=== PATIENT | male | born 1990 | race African-American/Black ===

== ENCOUNTER 2018-06-06 08:01 | Emergency (ER) | payer BC, OTHER ==
--- NOTE | 2018-06-06 09:15 | RAD ---
RIGHT HAND THREE VIEWS: HISTORY: Injury. Pain. COMPARISON: None. FINDINGS: No acute displaced fracture or malalignment. Soft tissues are unremarkable. Mild lateral capsular c alcification along the middle finger metacarpophalangeal joint. 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 IMPRESSION: No acute displaced fracture or malalignment. POS: [facility]
== END 2018-06-06 09:45 | disposition home or self-care (01) ==
LOC: ERS 08:01
DX: M25.531 Pain in right wrist (principal); E11.9 Type 2 diabetes mellitus without complications; E78.5 Hyperlipidemia, unspecified; Z87.891 Personal history of nicotine dependence; W23.0XXA Caught, crushed, jammed, or pinched between moving objects, initial encounter
CPT/HCPCS: 29125

== ENCOUNTER 2019-09-10 22:35 | Emergency (ER) | payer OTHER ==
[2019-09-10 23:01] LABS: Base Excess-Venous -0.8 mmol/L (-2.0 to 3.0); Bicarbonate (HCO3v) 25.5 mmol/L (22.0-28.0); CO2 Tension (PvCO2) 47.2 mmHg (40.0-50.0); Calcium, Ionized 1.13 mmol/L (See Comments:); Chloride 98 mmol/L (98-107); Hemoglobin - Calc 15.6 g/dL (14.0-18.0); Potassium 3.7 mmol/L (3.5-5.1); Sodium 136 mmol/L (138-145); vO2 Saturation-calc 58.3 % (60.0-85.0)
[2019-09-10 23:13] LABS: #Basophils 0.1 thou/uL (0.0-0.2); #Eosinphils 0.1 thou/uL (0.0-0.7); #Lymphocytes 1.6 thou/uL (1.20-3.40); #Monocytes 0.4 thou/uL (0.11-0.59); #Neutrophils 2.3 thou/uL (1.40-6.50); %Basophils 1.3 % (0.0-1.0); %Eosinophils 2.9 % (0.0-10.0); %Lymphocytes 35.7 % (21.0-51.0); %Neutrophils 51.2 % (42.0-75.0); Hemoglobin 15.4 g/dL (14.0-18.0); Mean Corpuscular HGB CONC 33.1 g/dL (32.0-36.0); Mean Corpuscular Hemoglobin 28.7 pg (27.0-31.0); Mean Corpuscular Volume 86.7 fL (78.0-98.0); Mean Platelet Volume 9.5 fL (7.4-10.4); Platelet Count 225 thou/uL (130-400); RBC Distribution Width 11.9 % (11.5-14.5); Red Blood Cell (RBC) Count 5.36 mill/uL (4.70-6.10); White Blood Cell (WBC) Count 4.5 thou/uL (4.8-10.8)
[2019-09-10 23:25] LABS: Bilirubin Negative (Negative); Blood, Urine Negative (Negative); Clarity Clear (Clear); Glucose, Urine (Dipstick) Greater than 1000 mg/dL (Negative); Leukocyte Negative Leu/uL (Negative); Nitrite Negative (Negative); Protein, Urine (Dipstick) Negative (Neg-Trace); Urobilinogen Normal mg/dL (Less than 2)
[2019-09-10 23:35] LABS: ALT (SGPT) 60 U/L (8-55); AST (SGOT) 24 U/L (5-34); Albumin 4.6 g/dL (3.5-5.0); Alcohol Less than 10 mg/dL (Less than 10); Alkaline Phosphatase 112 U/L (40-110); Anion Gap 15 mmol/L (10-20); BUN (Urea Nitrogen) 8 mg/dL (8.9-20.6); Bilirubin, Total 0.7 mg/dL (0.2-1.2); Calc. Creatinine Clearance 0 mL/min (70-130); Calcium 9.4 mg/dL (7.8-10.44); Carbon Dioxide 26 mmol/L (22-29); Chloride 98 mmol/L (98-107); Estimated GFR-MDRD 81; Globulin 2.9 g/dL (2.4-3.5); Potassium 3.9 mmol/L (3.5-5.1); Protein, Total 7.5 g/dL (6.0-8.3); Sodium 135 mmol/L (136-145)
[2019-09-10 23:40] LABS: Glucose 604 mg/dL (70-105)
== END 2019-09-11 01:48 | disposition home or self-care (01) ==
LOC: ERS 22:35
DX: E11.65 Type 2 diabetes mellitus with hyperglycemia (principal); E78.5 Hyperlipidemia, unspecified; E78.00 Pure hypercholesterolemia, unspecified; Z87.891 Personal history of nicotine dependence; Z79.84 Long term (current) use of oral hypoglycemic drugs
CPT/HCPCS: 36416; 80053; 80307; 81003; 82010; 82330; 82435; 82803; 83930; 84132; 84295; 85014; 85025; 96360; 96361

== ENCOUNTER 2020-06-02 01:46 | Emergency (ER) | payer OTHER | END 2020-06-02 03:05 | disposition home or self-care (01) | LOC: ERS 01:46 | DX: L03.317 Cellulitis of buttock (principal); E11.9 Type 2 diabetes mellitus without complications; E78.5 Hyperlipidemia, unspecified; E78.00 Pure hypercholesterolemia, unspecified; Z87.891 Personal history of nicotine dependence; Z79.84 Long term (current) use of oral hypoglycemic drugs; Z79.899 Other long term (current) drug therapy | CPT/HCPCS: 99283 ==

== ENCOUNTER 2021-04-18 15:10 | Emergency (ER) | payer BC, OTHER ==
[2021-04-18] MEDS ORDERED: Lidocaine 4% Cream 5 GM TUBE w/ Tegaderm ONE (15:50)
[2021-04-18] MEDS ORDERED: Lidocaine Viscous Sol 2% 15 ml UD Cup ONE (15:58)
== END 2021-04-18 17:15 | disposition home or self-care (01) ==
LOC: ERS 15:10
DX: K04.7 Periapical abscess without sinus (principal); E11.9 Type 2 diabetes mellitus without complications; E78.5 Hyperlipidemia, unspecified; Z87.891 Personal history of nicotine dependence; Z79.84 Long term (current) use of oral hypoglycemic drugs
CPT/HCPCS: 41800

== ENCOUNTER 2021-08-02 08:27 | Emergency (ER) | payer BC, OTHER ==
[2021-08-02 08:59] LABS: #Basophils 0.1 thou/uL (0.0-0.2); #Eosinphils 0.2 thou/uL (0.0-0.7); #Lymphocytes 1.9 thou/uL (1.20-3.40); #Monocytes 0.4 thou/uL (0.11-0.59); #Neutrophils 2.4 thou/uL (1.40-6.50); %Basophils 1.6 % (0.0-1.0); %Eosinophils 3.3 % (0.0-10.0); %Monocytes 7.5 % (0.0-10.0); %Neutrophils 48.7 % (42.0-75.0); Hemoglobin 15.8 g/dL (14.0-18.0); Mean Corpuscular HGB CONC 33.8 g/dL (32.0-36.0); Mean Corpuscular Hemoglobin 29.6 pg (27.0-31.0); Mean Corpuscular Volume 87.7 fL (78.0-98.0); Mean Platelet Volume 8.3 fL (7.4-10.4); Platelet Count 269 thou/uL (130-400); RBC Distribution Width 11.5 % (11.5-14.5); Red Blood Cell (RBC) Count 5.34 mill/uL (4.70-6.10); White Blood Cell (WBC) Count 4.9 thou/uL (4.8-10.8)
[2021-08-02] MEDS ORDERED: Insulin Regular 300 UNITS/3 ML VIAL ONE (09:17)
[2021-08-02 09:30] LABS: Albumin 4.6 g/dL (3.5-5.0)
[2021-08-02 09:31] LABS: Chloride 101 mmol/L (98-107); Potassium 4.3 mmol/L (3.5-5.1)
[2021-08-02 09:32] LABS: Calcium 9.3 mg/dL (7.8-10.44); Sodium 136 mmol/L (136-145)
[2021-08-02 09:33] LABS: Globulin 3.3 g/dL (2.4-3.5); Glucose 346 mg/dL (70-105); Protein, Total 7.9 g/dL (6.0-8.3)
[2021-08-02 09:34] LABS: Anion Gap 14 mmol/L (10-20); Carbon Dioxide 25 mmol/L (22-29)
[2021-08-02 09:36] LABS: Alkaline Phosphatase 88 U/L (40-110); Calc. Creatinine Clearance 0 mL/min (70-130)
[2021-08-02 09:37] LABS: BUN (Urea Nitrogen) 11 mg/dL (8.9-20.6)
[2021-08-02 09:38] LABS: AST (SGOT) 24 U/L (5-34)
[2021-08-02 09:39] LABS: ALT (SGPT) 67 U/L (8-55)
[2021-08-02 09:44] LABS: Bilirubin Negative (Negative); Blood, Urine 1+ (Negative); Clarity Clear (Clear); Glucose, Urine (Dipstick) Greater than 1000 mg/dL (Negative); Ketone, Urine Negative (Negative); Leukocyte Negative Leu/uL (Negative); Nitrite Negative (Negative); Protein, Urine (Dipstick) Negative (Neg-Trace); Squamous Epithelial 0-3 HPF (0-3); Urobilinogen Normal mg/dL (Less than 2); WBC/HPF 0-3 HPF (0-3); pH, Urine 5.5 (5.0-9.0)
[2021-08-02 09:46] LABS: Bacteria/HPF 1+ HPF (None Seen)
[2021-08-02 10:20] LABS: Actual Bicarbonate (HCO3v) 26 mEq/L (22-28); Analyzer IN Cardio ER; Base Excess -0.4 mEq/L (-2.0 to +3.0); Calcium, Ionized (venous) 1.12 mmol/L (1.16-1.32); Chloride (VBG) 102 mmol/L (98-106); Hemoglobin (Hb) 15.3 g/dL (13.2-17.3); Potassium (VBG) 4.14 mmol/L (3.70-5.30); Sodium 136.8 mmol/L (133-146); pH (venous) 7.33 (7.32-7.43)
[2021-08-02 10:26] LABS: Lipase 29 U/L (8-78); Magnesium 2.1 mg/dL (1.6-2.6)
[2021-08-02 13:46] LABS: Bilirubin, Total 0.4 mg/dL (0.2-1.2)
== END 2021-08-02 10:52 | disposition home or self-care (01) ==
LOC: ERS 08:27
DX: E11.65 Type 2 diabetes mellitus with hyperglycemia (principal); E78.5 Hyperlipidemia, unspecified; Z87.891 Personal history of nicotine dependence; Z79.899 Other long term (current) drug therapy; Z79.84 Long term (current) use of oral hypoglycemic drugs
CPT/HCPCS: 36415; 36416; 80053; 81003; 81015; 82805; 83690; 83735; 83930; 85025; 87086; 93005; J1815

== ENCOUNTER 2021-09-23 20:31 | Emergency (ER) | payer BC, OTHER ==
[2021-09-23] MEDS ORDERED: Proparacaine 0.5% Opth 15 ML BOT ONE (22:46)
[2021-09-23] MEDS ORDERED: Fluorescein Opthalmic Strip ONE (22:46)
== END 2021-09-24 00:04 | disposition home or self-care (01) ==
LOC: ERS 20:31
DX: H10.9 Unspecified conjunctivitis (principal); Z87.891 Personal history of nicotine dependence
CPT/HCPCS: 99282

== ENCOUNTER 2021-10-26 22:33 | Emergency (ER) | payer BC, OTHER ==
[2021-10-27 00:30] LABS: Anion Gap 16 mmol/L (10-20); BUN (Urea Nitrogen) 6 mg/dL (8.9-20.6); Calc. Creatinine Clearance 0 mL/min (70-130); Calcium 9.3 mg/dL (7.8-10.44); Carbon Dioxide 23 mmol/L (22-29); Chloride 103 mmol/L (98-107); Glucose 333 mg/dL (70-105); Potassium 3.8 mmol/L (3.5-5.1); Sodium 138 mmol/L (136-145)
== END 2021-10-27 01:45 | disposition home or self-care (01) ==
LOC: ERS 22:33
DX: E11.65 Type 2 diabetes mellitus with hyperglycemia (principal); E78.5 Hyperlipidemia, unspecified; Z87.891 Personal history of nicotine dependence
CPT/HCPCS: 36416; 80048; 99284

== ENCOUNTER 2021-11-13 03:37 | Emergency (ER) | payer BC, OTHER ==
[2021-11-13 04:17] LABS: #Eosinphils 0.2 thou/uL (0.0-0.7); #Lymphocytes 2.1 thou/uL (1.20-3.40); #Monocytes 0.4 thou/uL (0.11-0.59); #Neutrophils 2.3 thou/uL (1.40-6.50); %Basophils 0.9 % (0.0-1.0); %Eosinophils 3.4 % (0.0-10.0); %Lymphocytes 41.8 % (21.0-51.0); %Monocytes 7.8 % (0.0-10.0); %Neutrophils 46.1 % (42.0-75.0); Mean Corpuscular HGB CONC 33.3 g/dL (32.0-36.0); Mean Corpuscular Hemoglobin 29.2 pg (27.0-31.0); Mean Corpuscular Volume 87.6 fL (78.0-98.0); Mean Platelet Volume 8.6 fL (7.4-10.4); Platelet Count 217 thou/uL (130-400); RBC Distribution Width 11.6 % (11.5-14.5); Red Blood Cell (RBC) Count 5.15 mill/uL (4.70-6.10); White Blood Cell (WBC) Count 4.9 thou/uL (4.8-10.8)
[2021-11-13 04:42] LABS: ALT (SGPT) 44 U/L (8-55); AST (SGOT) 16 U/L (5-34); Albumin 4.2 g/dL (3.5-5.0); Alkaline Phosphatase 92 U/L (40-110); Anion Gap 15 mmol/L (10-20); BUN (Urea Nitrogen) 11 mg/dL (8.9-20.6); Bilirubin, Total 0.4 mg/dL (0.2-1.2); Calc. Creatinine Clearance 0 mL/min (70-130); Carbon Dioxide 24 mmol/L (22-29); Chloride 99 mmol/L (98-107); Globulin 2.9 g/dL (2.4-3.5); Glucose 510 mg/dL (70-105); Protein, Total 7.1 g/dL (6.0-8.3); Sodium 134 mmol/L (136-145)
== END 2021-11-13 08:00 | disposition home or self-care (01) ==
LOC: ERS 03:37
DX: E11.65 Type 2 diabetes mellitus with hyperglycemia (principal); R51.9 Headache, unspecified; Z87.891 Personal history of nicotine dependence; E78.5 Hyperlipidemia, unspecified; E78.00 Pure hypercholesterolemia, unspecified; Z79.84 Long term (current) use of oral hypoglycemic drugs
CPT/HCPCS: 36416; 80053; 82010; 85025; 96360; 96361

== ENCOUNTER 2021-12-14 01:00 | Emergency (ER) | payer BC, OTHER ==
[2021-12-14] MEDS ORDERED: Lidocaine 1% PF 5 ML VIAL ONE (01:15)
== END 2021-12-14 02:22 | disposition home or self-care (01) ==
LOC: ERS 01:00
DX: L02.811 Cutaneous abscess of head [any part, except face] (principal); E78.5 Hyperlipidemia, unspecified; E11.9 Type 2 diabetes mellitus without complications; Z87.891 Personal history of nicotine dependence; Z79.84 Long term (current) use of oral hypoglycemic drugs
CPT/HCPCS: 10060

== ENCOUNTER 2022-04-30 04:27 | Emergency (ER) | payer BC, OTHER ==
[2022-04-30] MEDS ORDERED: Ibuprofen 800 MG TAB ONE (04:42)
[2022-04-30] MEDS ORDERED: Ondansetron ODT 4 MG TAB ONE (04:42)
[2022-04-30 05:35] LABS: SARS-CoV-2 NAA Rapid Test Not Detected (NotDetected)
== END 2022-04-30 05:39 | disposition home or self-care (01) ==
LOC: ERS 04:27
DX: B34.9 Viral infection, unspecified (principal); E11.9 Type 2 diabetes mellitus without complications; E78.00 Pure hypercholesterolemia, unspecified; Z20.822 Contact with and (suspected) exposure to COVID-19; Z79.84 Long term (current) use of oral hypoglycemic drugs; Z79.899 Other long term (current) drug therapy
CPT/HCPCS: 99283; Q0162

== ENCOUNTER 2023-07-01 05:07 | Emergency (ER) | payer BC ==
[2023-07-01] MEDS ORDERED: Ibuprofen 200 MG TAB ONE (05:27)
[2023-07-01] MEDS ORDERED: Acetaminophen 500 MG TAB ONE (05:27)
== END 2023-07-01 05:36 | disposition home or self-care (01) ==
LOC: ERS 05:07
DX: H93.8X2 Other specified disorders of left ear (principal); K03.81 Cracked tooth; E11.9 Type 2 diabetes mellitus without complications; E78.5 Hyperlipidemia, unspecified; F17.210 Nicotine dependence, cigarettes, uncomplicated; Z79.899 Other long term (current) drug therapy; Z79.84 Long term (current) use of oral hypoglycemic drugs
CPT/HCPCS: 99282